=== PATIENT | female | born 1960 | race Caucasian/White ===

== ENCOUNTER → 2017-02-12 | Outpatient (CLI) | payer BC ==
--- NOTE | 2017-02-12 12:11 | ECHOS ---
STRESS ECHOCARDIOGRAM DATE OF SERVICE: 02/12/2017 INDICATIONS: Chest pain. MEDICATIONS:: Metoprolol, Plaquenil, tramadol, cevimeline. BASELINE HEART RATE: 94 BASELINE BLOOD PRESSURE: 132/90 MAXIMUM HEART RATE: 144 MAXIMUM BLOOD PRESSURE: 168/77 85% MPHR: 140 100% MPHR: 165 METS: 8.7 MAXIMUM STAGE REACHED: III TOTAL EXERCISE TIME: 7:15 Baseline EKG revealed normal sinus rhythm, with minor inferolateral ST abnormality. Patient walked for 7 minutes 15 seconds, achieved a maximal heart rate of 144 beats per minute which is more than 85% of predicted maximum. There was some artifact noted. No significant ST-segment changes were noted. The patient did not have angina or any significant arrhythmia. By EKG criteria, this is a negative stress test with fair exercise capacity. Baseline echo images revealed normal wall motion and wall thickening of all segments. At peak exercise, there was good augmentation of the left ventricular wall motion and wall thickening of all segments suggesting that there is no evidence of stress-induced ischemia on this study. FINAL IMPRESSION: Fair exercise capacity with a negative stress test by EKG criteria and a negative stress echocardiogram. MMODL / IJN: [id number] /
== END ==
LOC: RADNMMAIN 10:00
PROVIDERS: ATTEND Family Medicine
DX: R07.9 Chest pain, unspecified (principal); I10 Essential (primary) hypertension
CPT/HCPCS: 93017; 93350

== ENCOUNTER → 2021-10-05 | Outpatient (CLI) | payer BC | END | disposition home or self-care (01) | LOC: LABWHC1 10:54 | PROVIDERS: ATTEND Family Medicine | DX: U07.1 COVID-19 (principal) | CPT/HCPCS: 87502; U0003; C9803 ==

== ENCOUNTER → 2022-01-31 | Outpatient (CLI) | payer BC | END | disposition home or self-care (01) | LOC: LABWHC1 11:22 | PROVIDERS: ATTEND Family Medicine | DX: Z53.9 Procedure and treatment not carried out, unspecified reason (principal) ==

== ENCOUNTER → 2022-01-31 | Outpatient (CLI) | payer BC ==
[2022-01-31 10:23] VITALS: BP 153/92; PULSE 62; RESP 17; TEMP 98.2
--- NOTE | 2022-01-31 11:23 | P.HPOB ---
History of Present Illness H&P Date: 01/31/22 Chief Complaint: The patient is here for her routine gynecologic exam and ma mmogram. This is a 61-year-old 012 with an LMP of approximately 2011. The patient is here to establish with this office. It has been about 2 years since her last pelvic exam. She is without gynecologic complaints and denies any postmenopausal bleeding. She was started on estradiol vaginal cream because of urinary symptoms. She states this has helped. She is sexually active. Review of Systems The patient's weight has been stable over the last year. She denies respiratory, cardiac, or G.I. problems. Past Medical History Past Medical History: GERD/Reflux, Hypertension, Osteoarthritis (OA), Rheumatoid Arthritis (RA), Sleep Apnea/CPAP/BIPAP Additional Past Medical History / Comment(s): Other HX: migraines, juvenile rheumatoid arthritis, seasonal ALLERGIES, and dry mouth. PAST FOOD BROKER HISTORY: She has no history of STDs. History of Any Multi-Drug Resistant Organisms: None Reported Past Surgical History: Breast Surgery, Joint Replacement, Orthopedic Surgery Additional Past Surgical History / Comment(s): 06/22/15 Total R hip arthroplasty anterior approach with cell saver. Other surgical hx: bilateral jonathan bunion and hammer toe, rt arthroscopy shoulder surgery, L breast biopsy, jonathan eyelid surgery. Colonoscopy 2016(next after 5yr) Past Anesthesia/Blood Transfusion Reactions: Motion Sickness, Postoperative Nausea & Vomiting (PONV) Past Psychological History: Anxiety (Denies current depression.) Additional Psychological History / Comment(s): Pt resides with spouse. She uses no assistive device. She drives. Smoking Status: Never smoker Past Alcohol Use History: Occasional (0-2 per week) Past Drug Use History: None Reported Additional History: She has been since 1992. She is sexually active. 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 - Past Family History Father Family Medical History: Cancer, Diabetes Mellitus Additional Family Medical History / Comment(s): Lung cancer and Colon cancer. Mother Family Medical History: Dementia, Hypertension, Thyroid Disorder Medications and Allergies Home Medications Medication Instructions Recorded Confirmed Type Cevimeline HCl [Evoxac] 30 mg PO BID 06/17/15 01/31/22 History Cranberry Conc/C/Bacill Coag 2 tab PO DAILY 06/17/15 01/31/22 History [Cranberry Tablet] Pseudoephedrine HCl [Sudafed 12 120 mg PO Q12HR PRN 06/17/15 01/31/22 History Hour] Venlafaxine HCl ER [Effexor Xr] 150 mg PO DAILY 06/17/15 01/31/22 History Hydrocodone/Acetaminophen [[place] 1 - 2 each PO Q6HR PRN #90 tab 06/23/15 01/31/22 Rx 5-325] Estradiol Cream [Estrace Cream 0.5 g VAGINAL DIRECTED 01/31/22 01/31/22 History 0.01%] Hydroxychloroquine Sulfate 200 mg PO DAILY 01/31/22 01/31/22 History [Plaquenil] Levocetirizine Dihydrochloride 5 mg PO DAILY 01/31/22 01/31/22 History Allergies Allergy/AdvReac Type Severity Reaction Status Date / Time codeine Allergy Nausea Verified 01/31/22 10:15 Exam Vital Signs Temp Pulse Resp BP Pulse Ox 01/31/22 10:20 98.2 F 62 17 153/92 98 Intake and Output 01/30/22 01/31/22 01/31/22 22:59 06:59 14:59 Other: Weight 59.874 kg Height 5 feet 4 inches, weight 132 pounds, BMI 22.7. This is a well-developed well-nourished white female who is alert and oriented times 3 in no acute distress. HEENT: Within normal limits. NECK: Supple without mass or thyromegaly. CHEST AND LUNGS: Clear to auscultation. HEART: Regular rate and rhythm. BREASTS: Are without mass or discharge. AXILLARY EXAM: Negative for adenopathy. BACK: Negative for CVA tenderness. ABDOMEN: Soft, nontender, without palpable masses. PELVIC EXAM: Normal external genitalia with mild atrophy. Cervix and vagina appear normal with mild atrophy. There is no unusual discharge. There is no evidence of prolapse. The uterus is midposition, nongravid size and nontender. There are no palpable adnexal masses or tenderness. RECTAL EXAM: Rectovaginal exam is negative for mass or tenderness and is negative for occult blood. EXTREMITIES: Nontender. Hands have bilateral locked finger joints consistent with long history of rheumatoid arthritis. IMPRESSION: 1. 69-year-old menopausal female with normal gynecologic exam. 2. Elevated blood pressure with history of chronic hypertension. 3. She is using estradiol vaginal cream which seems to help with her bladder and urinary symptoms. PLAN: 1. Pap smear cotest was performed. 2. Self breast awareness was discussed with the patient. We have also discussed symptoms associated with inflammatory breast cancer. 3. Screening mammogram will be done today. 4. Osteoporosis prevention was discussed. I have stressed the importance of adequate calcium, vitamin D and regular exercise. Recommended amounts of calcium and vitamin D were also discussed. I have recommended bone density screening since she hasn't had this done for many years. The order slip was given to the patient for this. 5. She has completed her Covid vaccination series and has received a booster. 6. I have recommended that she check her own blood pressure on a regular basis. She will follow up with Dr. Fowler for blood pressure elevations. 7. She was advised to return in one year for her annual well woman exam.
[2022-01-31 18:11] LABS: Basophils # (A) 0.04 X 10*3/uL (0.00-0.10); Basophils % (A) 0.7 %; Eosinophils # (A) 0.13 X 10*3/uL (0.04-0.35); Eosinophils % (A) 2.2 %; HCT 37.8 % (37.2-46.3); HGB 12.4 g/dL (12.0-15.0); Immature Grans, Automated 0.3 %; Lymphocytes # (A) 1.77 X 10*3/uL (0.90-5.00); Lymphocytes % (A) 30.4 %; MCH 31.2 pg (27.0-32.0); MCHC 32.8 g/dL (32.0-37.0); MCV 95.2 fL (80.0-97.0); Monocytes # (A) 0.58 X 10*3/uL (0.20-1.00); Monocytes % (A) 9.9 %; NRBC Per 100 WBC 0 /100 WBCS (0.0-0.0); Neutrophils # (A) 3.29 X 10*3/uL (1.80-7.70); Neutrophils % (A) 56.5 %; Platelet Count 352 X 10*3/uL (140-440); RBC 3.97 X 10*6/uL (4.10-5.20); RDW 11.9 % (11.5-14.5); WBC 5.83 X 10*3/uL (4.50-10.00)
[2022-01-31 19:03] LABS: ALT 18 U/L (8-44); AST 20 U/L (13-35); African American GFR (CKD) 114.8 (60.0-200.0); Albumin 4.7 g/dL (3.8-4.9); Albumin/Globulin Ratio 1.96 (1.60-3.17); Alkaline Phosphatase 84 U/L (41-126); Blood Urea Nitrogen 13.5 mg/dL (9.0-27.0); Calcium 10.2 mg/dL (8.7-10.3); Carbon Dioxide 25.2 mmol/L (20.0-27.5); Chloride 104 mmol/L (96-109); Chol/HDL Ratio 2.19 Ratio; Globulin 2.4 g/dL (1.6-3.3); Glucose 86 mg/dL (70-110); LDL Cholesterol,Calculated 121.1 mg/dL (0.0-131.0); Non-African American GFR(CKD) 99.1 (60.0-200.0); Potassium 4.9 mmol/L (3.5-5.5); Sodium 141 mmol/L (135-145); Total Protein 7.1 g/dL (6.2-8.2); VLDL Calculation 12.88 mg/dL (5.00-40.00)
== END ==
LOC: WWCWWP 10:03
PROVIDERS: ATTEND Obstetrics & Gynecology
DX: Z12.31 Encounter for screening mammogram for malignant neoplasm of breast (principal); Z01.419 Encounter for gynecological examination (general) (routine) without abnormal findings; I10 Essential (primary) hypertension; M19.90 Unspecified osteoarthritis, unspecified site; M06.9 Rheumatoid arthritis, unspecified; G43.909 Migraine, unspecified, not intractable, without status migrainosus; F41.9 Anxiety disorder, unspecified; Z88.5 Allergy status to narcotic agent
CPT/HCPCS: 77067; 80053; 80061; 84439; 84443; 85025

== ENCOUNTER → 2022-05-08 | Outpatient (CLI) | payer BC ==
--- NOTE | 2022-05-08 08:57 | CT ---
EXAMINATION TYPE: CT sinus wo con CT DLP: 636.4 mGycm, Automated exposure control for dose reduction was used. DATE OF EXAM: 05/08/2022 7:41 AM COMPARISON: None. CLINICAL INDICATION:Female, 61 years old with history of J32.9 CHRONIC SINUSITIS, UNSPECIFIED; PHH, C hronic sinusitis. TECHNIQUE: Multiple thin axial images were obtained through the paranasal sinuses without the use of IV contrast. Additional coronal and sagittal reformatted images were submitted for evaluation. Contrast used: none Oral contrast used: none FINDINGS: Frontal sinuses: Normally developed and aerated. Frontal Recess: Clear Modified Edson-Carter Score: Right 0 = 0% Opacified, Left 0 = 0% Opacified Maxillary Sinuses: Normally developed and aerated. Modified Jelm-Bondurant Score: Right 0 = 0% Opacified, Left 0 = 0% Opacified Maxillary Infundibula(OMC): Clear, Mariama cell identified on the left without stenosis of the infundi bula. Modified Jelm-Bondurant Score: Right 0 = Completely patent, Left 0 = Completely patent Ethmoid sinuses: Normally developed and aerated. Ethmoidal notch: Protected and abutting the lateral lamina. Modified Jelm-Carter Score: Anterior Right 0 = 0% Opacified, Left 0 = 0% Opacified Posterior Right 0 = 0% Opacified, Left 0 = 0% Opacified Sphenoid sinuses: Normally developed and aerated. There is sellar sphenoid sinus pneumatization witho ut evidence of dehiscence. No dehiscence of carotid canal. No evidence of optic nerve dehiscence wit hin the sphenoid sinus. No evidence of Onodi cells. Sphenoethmoidal recesses: Clear. Modified Jelm-Bondurant Score: Right 0 = 0% Opacified, Left 0 = 0% Opacified. Nasal septum: Within normal limits.. Nasal Turbinates: Mucosal thickening of the nasal turbinates most pronounced in the inferior left. Mastoid air cells & middle ears: The air cells are clear. The middle ears are grossly unremarkable. Modified Soft tissues & Brain: Partially seen without gross abnormality. Globes are intact. Other: Cribriform plate demonstrates symmetric Keros classification type 2 cribriform plate. No evidence of bony dehiscence of skull base. Lamina papyracea is intact without evidence of remote orbital fracture or orbital prolapse into the e thmoid sinus. IMPRESSION: 1. No significant mucosal sinus disease. 2. The ostiomeatal units, frontonasal and sphenoethmoidal recesses are clear. 3. Opacification burden of 0/54 on the Modified Jelm-Carter scoring system.
== END | disposition home or self-care (01) ==
LOC: RADCTMAIN 07:27
PROVIDERS: ATTEND Otolaryngology
DX: J32.9 Chronic sinusitis, unspecified (principal); J32.8 Other chronic sinusitis; J34.89 Other specified disorders of nose and nasal sinuses
CPT/HCPCS: 70486

== ENCOUNTER → 2022-06-23 | Outpatient (CLI) | payer BC ==
[2022-06-23 15:54] LABS: ALT 19 U/L (8-44); AST 21 U/L (13-35); African American GFR (CKD) 111.2 (60.0-200.0); Albumin 4.6 g/dL (3.8-4.9); Albumin/Globulin Ratio 1.97 (1.60-3.17); Alkaline Phosphatase 71 U/L (41-126); BUN/Creat Ratio 21.79 Ratio (12.00-20.00); Blood Urea Nitrogen 14.4 mg/dL (9.0-27.0); Calcium 10.4 mg/dL (8.7-10.3); Carbon Dioxide 26.8 mmol/L (20.0-27.5); Chloride 105 mmol/L (96-109); Chol/HDL Ratio 2.29 Ratio; Globulin 2.3 g/dL (1.6-3.3); Glucose 97 mg/dL (70-110); LDL Cholesterol,Calculated 129.5 mg/dL (0.0-131.0); Potassium 5.1 mmol/L (3.5-5.5); Sodium 144 mmol/L (135-145); Total Bilirubin <0.15 mg/dL (0.30-1.20); Total Protein 6.9 g/dL (6.2-8.2); VLDL Calculation 11.48 mg/dL (5.00-40.00)
== END | disposition home or self-care (01) ==
LOC: LABWHC1 10:20
PROVIDERS: ATTEND Family Medicine
DX: E78.5 Hyperlipidemia, unspecified (principal)
CPT/HCPCS: 36415; 80053; 80061

== ENCOUNTER → 2022-11-08 | Outpatient (CLI) | payer BC ==
[2022-11-08 16:28] LABS: ALT 16 U/L (8-44); AST 19 U/L (13-35); Albumin 4.7 d/dL (3.8-4.9); Albumin/Globulin Ratio 2.04 Ratio (1.60-3.17); Alkaline Phosphatase 71 U/L (41-126); Blood Urea Nitrogen 17.1 mg/dL (9.0-27.0); Calcium 10.1 mg/dL (8.7-10.3); Carbon Dioxide 27.4 mmol/L (21.6-31.8); Chloride 102 mmol/L (96-109); Chol/HDL Ratio 1.78 Ratio; Globulin 2.3 d/dL (1.6-3.3); Glucose 86 mg/dL (70-110); LDL Cholesterol,Calculated 72.4 mg/dL (0.0-131.0); Potassium 4.7 mmol/L (3.5-5.5); Sodium 142 mmol/L (135-145); Total Bilirubin 0.3 mg/dL (0.3-1.2)
[2022-11-08 19:22] LABS: Basophils # (A) 0.06 X 10*3/uL (0.00-0.10); Basophils % (A) 1.1 %; Eosinophils # (A) 0.16 X 10*3/uL (0.04-0.35); Eosinophils % (A) 2.8 %; HCT 40.8 % (37.2-46.3); HGB 13.1 d/dL (12.0-15.0); Lymphocytes % (A) 28.3 %; MCH 31.4 pg (27.0-32.0); MCHC 32.1 d/dL (32.0-37.0); MCV 97.8 FL (80.0-97.0); Mean Platelet Volume 10.6 FL (9.5-12.2); Monocytes # (A) 0.57 X 10*3/uL (0.20-1.00); Monocytes % (A) 10.1 %; NRBC Per 100 WBC 0 X 10*3/uL (0.00-0.01); Neutrophils # (A) 3.25 X 10*3/uL (1.80-7.70); Neutrophils % (A) 57.5 %; Platelet Count 338 X 10*3/uL (140-440); RBC 4.17 X 10*6/uL (4.10-5.20); RDW 11.9 % (11.5-14.5); WBC 5.65 X 10*3/uL (4.50-10.00)
== END | disposition home or self-care (01) ==
LOC: LABWHC1 09:51
PROVIDERS: ATTEND Family Medicine
DX: E78.5 Hyperlipidemia, unspecified (principal)
CPT/HCPCS: 36415; 80053; 80061; 84443; 85025

== ENCOUNTER → 2023-01-05 | Outpatient (CLI) | payer BC ==
--- NOTE | 2023-01-05 13:18 | CA ---
Exercise Stress Test Report Name: Yolie Rocha Exam Date: 01/05/2023 09:14 Exam Location: [place] Stress Ht (in): 64 Wt (lb): 128 BSA: 1.62 Ordering Phys: Troy Fowler MD Referring Phys: Malcolm, Technologist: Aubrey Khalil Age: 62 Gender: F : 1960 Procedure CPT: Indications: R07.89 other chest pain ICD-10 Codes: Patient History: Chest pain and shortness of breath on exertion Medications: Meds past 24 hrs: Pretest Chest Pain: STRESS TEST Protocol Exercise Duration (min:sec): 09:[address] Depressions (mm): 0 Angina Score: 0 Hirsch Score: 9 Resting HR (bpm): 75 Peak HR (bpm): 136 Resting BP (mmHg): 129 / 83 Peak BP (mmHg): 146 / 81 MPHR: 159 Target HR: 135 % MPHR: 86 METS: 10.3 Total Dose: Peak Dose: Atropine: Double Product: BP Response: Stress Termination: Reached target heart rate Stress Symptoms: No chest pain or symptoms Stress Summary: The patient's target heart rate was achieved, The hemodynamic response to exercise was normal ECG ANALYSIS Resting ECG: Normal conduction. No arrhythmias. Normal repolarization. Stress ECG: No ECG evidence of ischemia with exercise. CONCLUSIONS Patient falls into low-risk group (DTS >= +5). This associates the patient with an annual CV mortality <= 0.5%. Normal ST segment response to stress. Normal electrocardiographic response to exercise Dr. Chelita Gant MD (Electronically Signed) Final Date: 05 January 2023 13:17
== END | disposition home or self-care (01) ==
LOC: RADNMMAIN 08:51
PROVIDERS: ATTEND Family Medicine
DX: R07.89 Other chest pain (principal); R06.02 Shortness of breath
CPT/HCPCS: 93017

== ENCOUNTER → 2023-09-04 | Outpatient (CLI) | payer BC ==
[2023-09-04 11:24] VITALS: BP 130/89; PULSE 81; RESP 17; TEMP 98.2
--- NOTE | 2023-09-04 11:44 | P.HPOB ---
History of Present Illness H&P Date: 09/04/23 Chief Complaint: The patient is here for her routine gynecologic exam and ma mmogram. This is a 63-year-old 012 with an LMP of 2011. The patient states she has not been using the estradiol vaginal cream which she was previously using for frequent urinary tract infections. She has not been having urinary tract infections this year even without the estradiol vaginal cream. She has been experiencing some vaginal dryness and discomfort with sex and thinks she would like to restart the estradiol cream. She is otherwise without gynecologic complaints. Review of Systems The patient's weight has been stable over the last year. She denies re spiratory, cardiac, or G.I. problems. Past Medical History Past Medical History: GERD/Reflux, Hypertension, Osteoarthritis (OA), Rheumatoid Arthritis (RA), Sleep Apnea/CPAP/BIPAP Additional Past Medical History / Comment(s): juvenile rheumatoid arthritis and environmental ALLERGIES. Migraine. PAST COMMUNICATIONS SPECIALIST HISTORY: She has no history of STDs. History of Any Multi-Drug Resistant Organisms: None Reported Past Surgical History: Breast Surgery, Joint Replacement, Orthopedic Surgery Additional Past Surgical History / Comment(s): 06/22/15 Total R hip arthroplasty anterior approach with cell saver. left hip replacement 2022. Other surgical hx: bilateral jonathan bunion and hammer toe, rt arthroscopy shoulder surgery, L breast biopsy, jonathan eyelid surgery. colonoscopy 2015(next after 5yr) Past Anesthesia/Blood Transfusion Reactions: Motion Sickness, Postoperative Nausea & Vomiting (PONV) Past Psychological History: No Psychological Hx Reported Additional Psychological History / Comment(s): Pt resides with spouse. She uses no assistive device. She drives. Smoking Status: Never smoker Past Alcohol Use History: Occasional (0-2 drinks per week.) Past Drug Use History: None Reported Additional History: she has been since 1992 and is sexually active. 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 - Past Family History Father Family Medical History: Cancer, Diabetes Mellitus Additional Family Medical History / Comment(s): Lung cancer and Colon cancer. Mother Family Medical History: Dementia, Hypertension, Thyroid Disorder Medications and Allergies Home Medications Medication Instructions Recorded Confirmed Type Cevimeline HCl [Evoxac] 30 mg PO BID 06/17/15 09/04/23 History Cranberry Conc/C/Bacill Coag 2 tab PO DAILY 06/17/15 09/04/23 History [Cranberry Tablet] Venlafaxine HCl ER [Effexor Xr] 150 mg PO DAILY 06/17/15 09/04/23 History Estradiol Cream [Estrace Cream 0.5 g VAGINAL DIRECTED 01/31/22 09/04/23 History 0.01%] Hydroxychloroquine Sulfate 200 mg PO DAILY 01/31/22 09/04/23 History [Plaquenil] Amitriptyline HCl 10 mg PO DAILY 09/04/23 09/04/23 History Cyclobenzaprine [Flexeril] 10 mg PO DAILY 09/04/23 09/04/23 History Ibuprofen 600 mg PO DAILY 09/04/23 09/04/23 History Rosuvastatin [Crestor] 10 mg PO DAILY 09/04/23 09/04/23 History SUMAtriptan succinate 100 mg PO DAILY 09/04/23 09/04/23 History Verapamil Sr [Isoptin Sr] 120 mg PO DAILY 09/04/23 09/04/23 History Allergies Allergy/AdvReac Type Severity Reaction Status Date / Time codeine Allergy Nausea Verified 01/31/22 10:15 Exam Vital Signs Temp Pulse Resp BP Pulse Ox 09/04/23 11:00 98.2 F 81 17 130/89 99 height 5 feet 2 inches, weight 134 pounds, BMI 24.5. This is a well-developed well-nourished White female who is alert and oriented times 3 in no acute distress. HEENT: Within normal limits. NECK: Supple without mass or thyromegaly. CHEST AND LUNGS: Clear to auscultation. HEART: Regular rate and rhythm. BREASTS: Are without mass or discharge. AXILLARY EXAM: Negative for adenopathy. BACK: Negative for CVA tenderness. ABDOMEN: Soft, nontender, without palpable masses. PELVIC EXAM: Normal external genitalia with mild atrophy. Cervix and vagina appear normal with mild atrophy. There is no unusual discharge. There is no evidence of prolapse. The uterus is midposition, nongravid size and nontender. There are no palpable adnexal masses or tenderness. RECTAL EXAM: rectovaginal exam is negative for mass or tenderness and is negative for occult blood. EXTREMITIES: Nontender. her hands reveal bilateral arthritic changes. IMPRESSION: 1. 63-year-old menopausal female with normal gynecologic exam 2. mild dyspareunia and vaginal dryness secondary to genital atrophy. PLAN: 1. Pap smear was deferred since she had a negative Pap smear cotest on 01/31/2022. 2. Self breast awareness was discussed with the patient. We have also discussed symptoms associated with inflammatory breast cancer. 3. screening mammogram was done today. 4. Osteoporosis prevention was discussed. I have stressed the importance of adequate calcium, vitamin D and regular exercise. Recommended amounts of calcium and vitamin D were also discussed. I have recommended bone density testing since her last bone density test was done about 10 years ago. The order slip was given to the patient for this. 5. Restart estradiol vaginal cream, 1 g into the vagina 2 times weekly. The electronic prescription will be sent to [facility] on [facility]. 6. She was advised to return in one year for her annual well woman exam.
--- NOTE | 2023-09-04 14:26 | MM ---
Reason for Exam: Screening (asymptomatic). Last mammogram was performed 1 year(s) and 8 month(s) ago. Patient History: Menarche at age 17. First Full-Term at age 37. Late child-bearing (after 30). Postmenopausal. Patient has history of breast feeding. 2017, Ultrasound-Guided Core Biopsy on the Left side. Risk Values: Mojgan 5 year model risk: 2.3%. NCI Lifetime model risk: 10.1%. Prior Study Comparison: 03/27/2012 Left MG diagnostic mammo LT w CAD - 2, [facility] [place]. 04/02/2012 Left MG diagnostic mammo LT w CAD - 2, [facility]. 02/18/2013 Bilateral MG screening mammo w CAD - 2, [facility] [place]. 01/31/2022 Bilateral MG screening mammo w CAD, [facility]. Tissue Density: The breasts are heterogeneously dense, which may obscure small masses. Findings: Analyzed By CAD. Left breast biopsy clip. Right breast: There is no suspicious group of microcalcifications or new suspicious mass. Benign-appearing calcifications right breast. Left breast: There is no suspicious group of microcalcifications or new suspicious mass. Benign-appearing calcifications left breast. Overall Assessment: Benign, BI-RAD 2 Management: Screening Mammogram of both breasts in [address] [facility] will attempt to contact patient to return for supplemental views and ultrasound if indicated. Patient should continue monthly self-breast exams. A clinical breast exam by your physician is recommended on an annual basis. This exam should not preclude additional follow-up of suspicious palpable abnormalities. Note on Mojgan scores and lifetime risk: 1. A Mojgan score greater than 3% is considered moderate risk. If this is the case, consider specialist referral to assess eligibility for a risk reducing agent. 2. If overall lifetime risk for the development of breast cancer is 20% or higher, the patient may qualify for future screening with alternating mammogram and breast MRI. Electronically signed and approved by: Anthony Lopez DO
== END | disposition home or self-care (01) ==
LOC: RADMAMWWP 09:59
PROVIDERS: ATTEND Obstetrics & Gynecology
DX: Z12.31 Encounter for screening mammogram for malignant neoplasm of breast (principal); Z01.419 Encounter for gynecological examination (general) (routine) without abnormal findings; Z78.0 Asymptomatic menopausal state
CPT/HCPCS: 77063; 77067

== ENCOUNTER → 2023-09-10 | Outpatient (CLI) | payer BC ==
--- NOTE | 2023-09-10 15:26 | BD ---
EXAMINATION TYPE: Axial Bone Density DATE OF EXAM: 09/10/2023 CLINICAL HISTORY: 63 years old Female. ICD-10 CODE: Z78.0 ASYMPTOMATIC MENOPAUSAL STATE Height: 62in Weight: 132lb FRAX RISK QUESTIONS: Secondary Osteoporosis: Rheumatoid Arthritis: yes RISK FACTORS HISTORY OF: Surgery to Spine/Hip(right/left)/Wrist (right/left): Bilateral hip replacements When: 2022 MEDICATIONS: EXAM MEASUREMENTS: Bone mineral densitometry was performed using the [employer]. Bone mineral density as measured about the Lumbar spine is: ----- L1-L4(G/cm2): 0.921 T Score Values are as follows: ----- L1: -2.3 ----- L2: -1.8 ----- L3: -2.3 ----- L4: -2.3 ----- L1-L4: -2.2 Z Score Values are as follows: ----- L1: -0.8 ----- L2: -0.3 ----- L3: -0.8 ----- L4: -0.8 ----- L1-L4: -0.6 First dexa at [facility] Bone mineral density about the L Wrist (g/cm2): 0.456 T Score values are as follows: -----Dist. R+U: -2.6 -----Prox. R+U: -3.1 -----Radius total: -3.6 Z Score values are as follows: -----Dist. R+U: -1.5 -----Prox. R+U: -2.1 -----Radius total: -2.5 First dexa at [facility] FRAX%s: No frax IMPRESSION: Osteoporosis (T Score less than -2.5). There is increased fracture risk and therapy is usually indicated based on age. Re-Screen 1-2 years. NOTE: T-SCORE=SD OF THE YOUNG ADULT MEAN.
== END | disposition home or self-care (01) ==
LOC: RADBDWWP 10:03
PROVIDERS: ATTEND Obstetrics & Gynecology
DX: M81.0 Age-related osteoporosis without current pathological fracture (principal); M85.89 Other specified disorders of bone density and structure, multiple sites; Z78.0 Asymptomatic menopausal state
CPT/HCPCS: 77080

== ENCOUNTER → 2023-10-05 | Outpatient (CLI) | payer BC ==
[2023-10-05 14:47] LABS: Basophils # (A) 0.05 X 10*3/uL (0.00-0.10); Basophils % (A) 0.7 %; Eosinophils # (A) 0.13 X 10*3/uL (0.04-0.35); Eosinophils % (A) 1.8 %; HCT 37.5 % (37.2-46.3); HGB 12.2 g/dL (12.0-15.0); Lymphocytes # (A) 1.27 X 10*3/uL (0.90-5.00); Lymphocytes % (A) 17.4 %; MCHC 32.5 g/dL (32.0-37.0); MCV 95.2 FL (80.0-97.0); Mean Platelet Volume 9.6 FL (9.5-12.2); Monocytes # (A) 0.62 X 10*3/uL (0.20-1.00); Monocytes % (A) 8.5 %; NRBC Per 100 WBC 0 X 10*3/uL (0.00-0.01); Neutrophils # (A) 5.13 X 10*3/uL (1.80-7.70); Neutrophils % (A) 70.5 %; Platelet Count 366 X 10*3/uL (140-440); RBC 3.94 X 10*6/uL (4.10-5.20); RDW 13.3 % (11.5-14.5); WBC 7.28 X 10*3/uL (4.50-10.00)
[2023-10-05 14:59] LABS: Erythrocyte Sedimentation Rate 7 mm/Hr (0-30)
== END | disposition home or self-care (01) ==
LOC: LABWHC1 10:25
PROVIDERS: ATTEND Orthopaedic Surgery
DX: M06.9 Rheumatoid arthritis, unspecified (principal); Z96.652 Presence of left artificial knee joint; M54.59 Other low back pain; M51.36 Other intervertebral disc degeneration, lumbar region; Z09 Encounter for follow-up examination after completed treatment for conditions other than malignant neoplasm; M67.854 Other specified disorders of tendon, left hip; M17.12 Unilateral primary osteoarthritis, left knee; M21.162 Varus deformity, not elsewhere classified, left knee
CPT/HCPCS: 36415; 85025; 85652; 86140

== ENCOUNTER → 2023-12-27 | Outpatient (CLI) | payer BC ==
[2023-12-27 15:23] LABS: ALT 15 U/L (8-44); AST 23 U/L (13-35); Albumin 4.5 g/dL (3.8-4.9); Albumin/Globulin Ratio 2.05 Ratio (1.60-3.17); Alkaline Phosphatase 75 U/L (41-126); BUN/Creat Ratio 16.86 Ratio (12.00-20.00); Blood Urea Nitrogen 11.8 mg/dL (9.0-27.0); Calcium 9.9 mg/dL (8.7-10.3); Carbon Dioxide 23.1 mmol/L (21.6-31.8); Chloride 105 mmol/L (96-109); Chol/HDL Ratio 1.59 Ratio; Globulin 2.2 g/dL (1.6-3.3); Glucose 92 mg/dL (70-110); LDL Cholesterol,Calculated 53.7 mg/dL (0.0-131.0); Sodium 141 mmol/L (135-145); Total Bilirubin 0.2 mg/dL (0.3-1.2); Total Protein 6.7 g/dL (6.2-8.2); VLDL Calculation 10.26 mg/dL (5.00-40.00)
[2023-12-27 16:52] LABS: Basophils # (A) 0.05 X 10*3/uL (0.00-0.10); Basophils % (A) 0.7 %; Eosinophils # (A) 0.13 X 10*3/uL (0.04-0.35); Eosinophils % (A) 1.7 %; HCT 39.8 % (37.2-46.3); HGB 13.1 g/dL (12.0-15.0); Lymphocytes # (A) 1.47 X 10*3/uL (0.90-5.00); Lymphocytes % (A) 19.7 %; MCH 31.3 pg (27.0-32.0); MCHC 32.9 g/dL (32.0-37.0); Monocytes # (A) 0.55 X 10*3/uL (0.20-1.00); Monocytes % (A) 7.4 %; NRBC Per 100 WBC 0 X 10*3/uL (0.00-0.01); Neutrophils # (A) 5.25 X 10*3/uL (1.80-7.70); Neutrophils % (A) 70.2 %; Platelet Count 332 X 10*3/uL (140-440); RBC 4.19 X 10*6/uL (4.10-5.20); RDW 12.1 % (11.5-14.5); WBC 7.47 X 10*3/uL (4.50-10.00)
== END | disposition home or self-care (01) ==
LOC: LABWHC1 10:20
PROVIDERS: ATTEND Family Medicine
DX: E78.5 Hyperlipidemia, unspecified (principal)
CPT/HCPCS: 36415; 80053; 80061; 84443; 85025

== ENCOUNTER → 2024-12-11 | Outpatient (CLI) | payer BC ==
[2024-12-11 15:33] LABS: Basophils # (A) 0.05 X 10*3/uL (0.00-0.10); Basophils % (A) 0.9 %; Eosinophils # (A) 0.16 X 10*3/uL (0.04-0.35); Eosinophils % (A) 2.8 %; HCT 38.5 % (37.2-46.3); HGB 12.5 g/dL (12.0-15.0); Immature Grans, Automated 0.30 %; Lymphocytes # (A) 1.41 X 10*3/uL (0.90-5.00); Lymphocytes % (A) 24.4 %; MCH 31.3 pg (27.0-32.0); MCHC 32.5 g/dL (32.0-37.0); MCV 96.3 FL (80.0-97.0); Monocytes # (A) 0.51 X 10*3/uL (0.20-1.00); Monocytes % (A) 8.8 %; NRBC Per 100 WBC 0 X 10*3/uL (0.00-0.01); Neutrophils # (A) 3.64 X 10*3/uL (1.80-7.70); Neutrophils % (A) 62.8 %; Platelet Count 310 X 10*3/uL (140-440); RBC 4.00 X 10*6/uL (4.10-5.20); RDW 12.3 % (11.5-14.5); WBC 5.79 X 10*3/uL (4.50-10.00)
[2024-12-11 15:35] LABS: Anion Gap 11.80 mmol/L (4.00-12.00); BUN/Creat Ratio 21.00 Ratio (12.00-20.00); Blood Urea Nitrogen 12.6 mg/dL (9.0-27.0); Carbon Dioxide 24.2 mmol/L (21.6-31.8); Chloride 104 mmol/L (96-109); Cholesterol 183.00 mg/dL (0.00-200.00); Glucose 94 mg/dL (70-110); HDL Cholesterol 111.00 mg/dL (40.00-60.00); LDL Cholesterol,Calculated 62.7 mg/dL (0.0-131.0); Potassium 5.0 mmol/L (3.5-5.5); Sodium 140 mmol/L (135-145); Triglycerides 46.30 mg/dL (0.00-149.00); VLDL Calculation 9.26 mg/dL (5.00-40.00)
[2024-12-11 15:36] LABS: ALT 17 U/L (8-44); AST 22 U/L (13-35); Albumin 4.5 g/dL (3.8-4.9); Albumin/Globulin Ratio 2.14 Ratio (1.60-3.17); Alkaline Phosphatase 73 U/L (41-126); Calcium 9.7 mg/dL (8.7-10.3); Globulin 2.1 g/dL (1.6-3.3); Total Protein 6.6 g/dL (6.2-8.2)
== END | disposition home or self-care (01) ==
LOC: LABWHC1 10:36
PROVIDERS: ATTEND Family Medicine
DX: E78.5 Hyperlipidemia, unspecified (principal)
CPT/HCPCS: 36415; 80053; 80061; 84443; 85025

== ENCOUNTER → 2024-12-23 | Outpatient (CLI) | payer BC ==
[2024-12-23 11:13] VITALS: BP 146/92; PULSE 87; RESP 16; TEMP 99.5
--- NOTE | 2024-12-23 11:30 | P.HPOB ---
History of Present Illness H&P Date: 12/23/24 Chief Complaint: The patient is here for her routine gynecologic exam and ma mmogram. This is a 64-year-old -0-1-2 with an LMP of 2011. The patient is without gynecologic complaints. Review of Systems The patient has lost 3 pounds over the last year. She denies respiratory, cardiac, or G.I. problems. Past Medical History Past Medical History: GERD/Reflux, Hypertension, Osteoarthritis (OA), Rheumatoid Arthritis (RA), Sleep Apnea/CPAP/BIPAP Additional Past Medical History / Comment(s): juvenile rheumatoid arthritis and environmental ALLERGIES. Scoliosis. Knee and back arthritis. Migraine. PAST CURRICULUM SUPERVISOR HISTORY: She has no history of STDs. History of Any Multi-Drug Resistant Organisms: None Reported Past Surgical History: Breast Surgery, Joint Replacement, Orthopedic Surgery Additional Past Surgical History / Comment(s): 06/22/15 Total R hip arthroplasty anterior approach with cell saver. left hip replacement 2022. Other surgical hx: bilateral jonathan bunion and hammer toe, rt arthroscopy shoulder surgery, L breast biopsy, jonathan eyelid surgery. colonoscopy 2023(next after 5yr). Past Anesthesia/Blood Transfusion Reactions: Motion Sickness, Postoperative Nausea & Vomiting (PONV) Past Psychological History: No Psychological Hx Reported Additional Psychological History / Comment(s): Pt resides with spouse. She uses no assistive device. She drives. Smoking Status: Never smoker Past Alcohol Use History: Occasional Past Drug Use History: None Reported Additional History: She has been since 1992 and is sexually active. 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 - Past Family History Father Family Medical History: Cancer, Diabetes Mellitus Additional Family Medical History / Comment(s): Lung cancer and Colon cancer. Mother Family Medical History: Dementia, Hypertension, Thyroid Disorder Medications and Allergies Home Medications Medication Instructions Recorded Confirmed Type Cevimeline HCl [Evoxac] 30 mg PO BID 06/17/15 09/04/23 History Cranberry Conc/C/Bacill Coag 2 tab PO DAILY 06/17/15 09/04/23 History [Cranberry Tablet] Hydroxychloroquine Sulfate 200 mg PO DAILY 01/31/22 09/04/23 History [Plaquenil] Amitriptyline HCl 10 mg PO DAILY 09/04/23 09/04/23 History Cyclobenzaprine [Flexeril] 10 mg PO DAILY 09/04/23 09/04/23 History Estradiol Cream [Estrace Cream 1 gm VAGINAL DIRECTED #42.5 gm 09/04/23 Rx 0.01%] Ibuprofen 600 mg PO DAILY 09/04/23 09/04/23 History Rosuvastatin [Crestor] 10 mg PO DAILY 09/04/23 09/04/23 History SUMAtriptan succinate 100 mg PO DAILY 09/04/23 09/04/23 History Verapamil Sr [Isoptin Sr] 120 mg PO DAILY 09/04/23 09/04/23 History Cetirizine HCl [Zyrtec] 10 mg PO DAILY 12/23/24 12/23/24 History Cholecalciferol (Vitamin D3) 125 mcg PO DAILY 12/23/24 12/23/24 History [Vitamin D3 (125 MCG = 5,000 IU)] D-Mannose [Azo D-Mannose] 500 mg PO 12/23/24 History Echinacea 400 mg PO 12/23/24 History Allergies Allergy/AdvReac Type Severity Reaction Status Date / Time codeine Allergy Nausea Verified 12/23/24 11:00 Exam Vital Signs Temp Pulse Resp BP Pulse Ox 12/23/24 11:07 99.5 F 87 16 146/92 99 Intake and Output 12/22/24 12/23/24 12/23/24 22:59 06:59 14:59 Other: Weight 59.421 kg Height 5 feet 3 inches, weight 131 pounds, BMI 23.2. This is a well-developed well-nourished white female who is alert and oriented times 3 in no acute distress. HEENT: Within normal limits. NECK: Supple without mass or thyromegaly. CHEST AND LUNGS: Clear to auscultation. HEART: Regular rate and rhythm. BREASTS: Are without mass or discharge. AXILLARY EXAM: Negative for adenopathy. BACK: Negative for CVA tenderness. There is scoliosis which she states she has had for many years. ABDOMEN: Soft, nontender, without palpable masses. PELVIC EXAM: Normal external genitalia with mild atrophy. Cervix and vagina appear normal with mild atrophy. There is no unusual discharge. There is no evidence of prolapse. The uterus is midposition, nongravid size and nontender. There are no palpable adnexal masses or tenderness. RECTAL EXAM: Rectovaginal exam is negative for mass or tenderness and is negative for occult blood. EXTREMITIES: Nontender. IMPRESSION: 1. 64-year-old menopausal female with normal gynecologic exam. 2. 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 PLAN: 1. Pap smear was deferred since she had a negative Pap smear cotest on 01/31/2022. 2. Self breast awareness was discussed with the patient. We have also discussed symptoms associated with inflammatory breast cancer. 3. Mammogram will be done today. 4. Continue estradiol vaginal cream 1 g 2 times weekly. The electronic prescription will be sent to [facility] pharmacy on . 5. Osteoporosis management was discussed. I have stressed the importance of adequate calcium, vitamin D and regular exercise. Recommended amounts of calcium and vitamin D were also discussed. We will plan on repeating the bone density test in 1 year. 6. She was advised to return in one year for her annual well woman exam.
--- NOTE | 2024-12-23 12:01 | MM ---
Reason for Exam: Screening (asymptomatic). Last mammogram was performed 1 year(s) and 3 month(s) ago. Patient History: Menarche at age 17. First Full-Term at age 37. Late child-bearing (after 31). Postmenopausal. Patient has history of breast feeding. 2017, Ultrasound-Guided Core Biopsy on the Left side. Risk Values: Mojgan 5 year model risk: 2.3%. NCI Lifetime model risk: 9.8%. Prior Study Comparison: 02/18/2013 Bilateral MG screening mammo w CAD - 2, [facility]. 01/31/2022 Bilateral MG screening mammo w CAD, [facility]. 09/04/2023 Bilateral MG 3D screening mammo w/cad, [facility]. Tissue Density: The breasts are heterogeneously dense, which may obscure small masses. Findings: Analyzed By CAD. Left breast biopsy clip. Right breast: There is no suspicious group of microcalcifications or new suspicious mass. Benign-appearing calcifications right breast. Left breast: There is no suspicious group of microcalcifications or new suspicious mass. Benign-appearing calcifications left breast. Overall Assessment: Benign, BI-RAD 2 Management: Screening Mammogram of both breasts in [address] [facility] will attempt to contact patient to return for supplemental views and ultrasound if indicated. Patient should continue monthly self-breast exams. A clinical breast exam by your physician is recommended on an annual basis. This exam should not preclude additional follow-up of suspicious palpable abnormalities. Note on Mojgan scores and lifetime risk: 1. A Mojgan score greater than 3% is considered moderate risk. If this is the case, consider specialist referral to assess eligibility for a risk reducing agent. 2. If overall lifetime risk for the development of breast cancer is 20% or higher, the patient may qualify for future screening with alternating mammogram and breast MRI. [facility], , 12/23/2024 11:58 AM. Electronically signed and approved by: Anthony Lopez DO
== END ==
LOC: WWCWWP 10:42
PROVIDERS: ATTEND Obstetrics & Gynecology
DX: Z01.419 Encounter for gynecological examination (general) (routine) without abnormal findings (principal); Z12.31 Encounter for screening mammogram for malignant neoplasm of breast; Z78.0 Asymptomatic menopausal state; Z87.39 Personal history of other diseases of the musculoskeletal system and connective tissue; Z88.5 Allergy status to narcotic agent
CPT/HCPCS: 77063; 77067